=== PATIENT | female | born 1985 | race Caucasian/White ===

== ENCOUNTER 2019-01-23 10:36 | Outpatient (CLI) | payer OTHER ==
[~2019-01-23] VITALS: Ht 157.5 cm; Wt 81.4 kg
[~2019-01-23 10:36] MED LIST: ACET-1600 PO; FLUO20TA25 PO; IBUP-1222 PO; OXYC-302 PO; PREN1TAB98 PO; SUCR1TAB PO; TRAM50TA2 PO
[2019-01-23 10:57] VITALS: BP 129/82
[2019-01-23 11:30] LABS: MICROSCOPIC NOT IND
[2019-01-23 12:01] LABS: BASOPHILS # (AUTO) 0.02 x10^3/uL (0-0.1); BASOPHILS % (AUTO) 0 % (0-1); EOSINOPHILS # (AUTO) 0.07 x10^3/uL (0-0.4); EOSINOPHILS % (AUTO) 1 % (1-7); LYMPHOCYTES # (AUTO) 0.78 x10^3/uL (1-3.4); LYMPHOCYTES % (AUTO) 11 % (22-44); MD NO; MEAN CORPUSCULAR HEMOGLOBIN 29.1 pg (27.0-34.8); MEAN CORPUSCULAR HGB CONC 31.8 g/dL (32.4-35.8); MEAN CORPUSCULAR VOLUME 91.5 fL (80-100); MEAN PLATELET VOLUME 8.7 fL (7.4-10.4); MONOCYTES # (AUTO) 0.43 x10^3/uL (0.2-0.8); MONOCYTES % (AUTO) 6 % (2-9); NEUTROPHILS % (AUTO) 82 % (42-75); PLATELET COUNT 147 x10^3/uL (130-400); RED BLOOD COUNT 3.93 x10^6/uL (3.82-5.3); RED CELL DISTRIBUTION WIDTH 14.5 % (9.6-15.2)
[2019-01-23 12:09] LABS: ALBUMIN 2.7 g/dL (3.4-5.0); CALCIUM 8.8 mg/dL (8.5-10.1); CHLORIDE 107 mmol/L (98-107)
[2019-01-23 12:29] LABS: ALANINE AMINOTRANSFERASE 14 U/L (12-78); ALKALINE PHOSPHATASE 104 U/L (45-117); ANION GAP 8 mmol/L (5-15); BILIRUBIN,TOTAL 0.5 mg/dL (0.2-1.0); CREATININE 0.48 mg/dL (0.55-1.02); TOTAL PROTEIN 6.4 g/dL (6.4-8.2)
[2019-01-23 12:31] LABS: BILIRUBIN, DIRECT < 0.1 mg/dL (0.1-0.2)
[2019-01-23] MEDS ORDERED: ACETAMINOPHEN 325 MG TABLET ONE (13:25)
[2019-01-23] MEDS ORDERED: ACETAMINOPHEN 325 MG TABLET PO PRN (13:30)
[2019-01-23 13:38] LABS: CREATININE,URINE RANDOM 48.3 mg/dL
== END 2019-01-23 13:40 | disposition home or self-care (01) ==
LOC: LDOP 10:36
PROVIDERS: ATTEND Obstetrics & Gynecology
DX: O26.893 Other specified pregnancy related conditions, third trimester (principal); R10.9 Unspecified abdominal pain; Z3A.30 30 weeks gestation of pregnancy
CPT/HCPCS: 36415; 59025; 80053; 81003; 82248; 82570; 84156; 84550; 85025; 87086; 99201; G0463

== ENCOUNTER → 2019-03-03 | Outpatient (CLI) | payer OTHER ==
[~2019-03-03] VITALS: Ht 157.5 cm; Wt 83.6 kg
[~2019-03-03] MED LIST changes: +METH500T11 PO; +MISOPROSTOL 25 MCG TABLET ONE; +PREN1TAB60 PO
[2019-03-03 15:15] VITALS: BP 127/80
[2019-03-03 15:35] LABS: MICROSCOPIC INDICATED
[2019-03-03 15:39] LABS: BASOPHILS # (AUTO) 0.03 x10^3/uL (0-0.1); BASOPHILS % (AUTO) 0 % (0-1); EOSINOPHILS # (AUTO) 0.05 x10^3/uL (0-0.4); EOSINOPHILS % (AUTO) 1 % (1-7); LYMPHOCYTES % (AUTO) 15 % (22-44); MD NO; MEAN CORPUSCULAR HEMOGLOBIN 29.8 pg (27.0-34.8); MEAN CORPUSCULAR HGB CONC 33.5 g/dL (32.4-35.8); MEAN CORPUSCULAR VOLUME 88.9 fL (80-100); MEAN PLATELET VOLUME 8.5 fL (7.4-10.4); MONOCYTES % (AUTO) 5 % (2-9); NEUTROPHILS # (AUTO) 7.68 x10^3/uL (1.8-6.8); NEUTROPHILS % (AUTO) 80 % (42-75); PLATELET COUNT 178 x10^3/uL (130-400); RED BLOOD COUNT 4.19 x10^6/uL (3.82-5.3); RED CELL DISTRIBUTION WIDTH 14.9 % (9.6-15.2)
[2019-03-03 15:41] LABS: CREATININE,URINE RANDOM 38.3 mg/dL
[2019-03-03 15:50] LABS: ANION GAP 10 mmol/L (5-15); CALCIUM 9.2 mg/dL (8.5-10.1); CHLORIDE 107 mmol/L (98-107)
[2019-03-03 15:55] LABS: ALANINE AMINOTRANSFERASE 18 U/L (12-78); ALKALINE PHOSPHATASE 131 U/L (45-117); BILIRUBIN,TOTAL 0.6 mg/dL (0.2-1.0); CREATININE 0.48 mg/dL (0.55-1.02); TOTAL PROTEIN 6.9 g/dL (6.4-8.2)
== END | disposition home or self-care (01) ==
LOC: LDOP 14:48
PROVIDERS: ATTEND Obstetrics & Gynecology
DX: O16.3 Unspecified maternal hypertension, third trimester (principal); Z3A.35 35 weeks gestation of pregnancy
CPT/HCPCS: 36415; 59025; 80053; 81001; 82570; 84156; 84550; 85025; 99211; G0463

== ENCOUNTER 2020-11-12 10:55 | Observation (INO) | payer OTHER ==
[~2020-11-12] VITALS: Ht 157.5 cm; Wt 75.4 kg
[~2020-11-12 10:55] MED LIST changes: +DOCU-131 PO; +FERR325T18 PO; -MISOPROSTOL 25 MCG TABLET ONE; -OXYC-302 PO; +OXYC1TAB14 PO
[2020-11-12] MEDS ORDERED: LACTATED RINGERS 1,000 ML IV SCH ×2 (11:00→12:53)
[2020-11-12] MEDS ORDERED: D5%-LACTATED RINGERS 1,000 ML IV SCH ×2 (11:00→12:52)
[2020-11-12] MEDS ORDERED: ONDANSETRON 2MG/ML, 2ML ONE ×2 (11:15→15:01)
[2020-11-12] MEDS: ONDANSETRON 2MG/ML, 2ML IVPush PRN ×2 (11:21→15:07)
[2020-11-12 11:25] LABS: MICROSCOPIC INDICATED
[2020-11-12] MEDS ORDERED: PLEASE ENTER HEIGHT AND WEIGHT MC SCH (11:30)
[2020-11-12 11:41] LABS: BASOPHILS % (AUTO) 0 % (0-1); EOSINOPHILS % (AUTO) 0 % (1-7); LYMPHOCYTES % (AUTO) 8 % (22-44); MEAN CORPUSCULAR HGB CONC 34.2 g/dL (32.4-35.8); MEAN PLATELET VOLUME 8.3 fL (7.4-10.4); MONOCYTES % (AUTO) 5 % (2-9); NEUTROPHILS % (AUTO) 86 % (42-75); PLATELET COUNT 141 x10^3/uL (130-400); RED BLOOD COUNT 3.95 x10^6/uL (3.82-5.3); RED CELL DISTRIBUTION WIDTH 14.4 % (9.6-15.2)
[2020-11-12 11:43] LABS: MD NO
[2020-11-12 11:58] LABS: ALBUMIN 2.8 g/dL (3.4-5.0); ANION GAP 9 mmol/L (5-15); CALCIUM 8.4 mg/dL (8.5-10.1); CHLORIDE 104 mmol/L (98-107)
[2020-11-12 12:03] LABS: ALANINE AMINOTRANSFERASE 23 U/L (12-78); ALKALINE PHOSPHATASE 46 U/L (45-117); BILIRUBIN,TOTAL 1.1 mg/dL (0.2-1.0); CREATININE 0.47 mg/dL (0.55-1.02); TOTAL PROTEIN 6.2 g/dL (6.4-8.2)
[2020-11-12] MEDS ORDERED: FAMOTIDINE 20 MG/2 ML IVPush ONE (14:30)
[2020-11-12] MEDS ORDERED: BUTALB/APAP/CAFFEINE 50MG/325MG/40MG ONE (15:42)
[2020-11-12] MEDS ORDERED: BUTALB/APAP/CAFFEINE 50MG/325MG/40MG PO ONE (16:00)
== END 2020-11-12 16:30 | disposition home or self-care (01) ==
LOC: LDOP 10:55 → LDIP 12:45
PROVIDERS: ADMIT Obstetrics & Gynecology Maternal & Fetal Medicine; ATTEND Obstetrics & Gynecology Maternal & Fetal Medicine
DX: O21.9 Vomiting of pregnancy, unspecified (principal); O26.892 Other specified pregnancy related conditions, second trimester; R19.7 Diarrhea, unspecified; O13.2 Gestational [pregnancy-induced] hypertension without significant proteinuria, second trimester; Z3A.20 20 weeks gestation of pregnancy; Z79.899 Other long term (current) drug therapy
CPT/HCPCS: 36415; 80053; 81001; 85025; 87086; 96361; 96374; 96375; 96376; 99211; G0378; J2405; J7120; J7121; 96360; G0463

== ENCOUNTER 2021-01-14 14:00 | Outpatient (CLI) | payer OTHER ==
[2021-01-14 14:40] LABS: MICROSCOPIC NOT IND
[2021-01-14 15:06] LABS: BASOPHILS % (AUTO) 0 % (0-1); EOSINOPHILS % (AUTO) 1 % (1-7); LYMPHOCYTES % (AUTO) 16 % (22-44); MEAN CORPUSCULAR HEMOGLOBIN 30.5 pg (27.0-34.8); MEAN CORPUSCULAR HGB CONC 33.8 g/dL (32.4-35.8); MEAN PLATELET VOLUME 9.1 fL (7.4-10.4); MONOCYTES % (AUTO) 6 % (2-9); NEUTROPHILS % (AUTO) 77 % (42-75); PLATELET COUNT 166 x10^3/uL (130-400); RED BLOOD COUNT 3.97 x10^6/uL (3.82-5.3); RED CELL DISTRIBUTION WIDTH 13.7 % (9.6-15.2)
[2021-01-14 15:08] LABS: MD NO
[2021-01-14 15:14] LABS: ALANINE AMINOTRANSFERASE 17 U/L (12-78); ALBUMIN 2.8 g/dL (3.4-5.0); ANION GAP 8 mmol/L (5-15); BILIRUBIN, DIRECT 0.1 mg/dL (0.1-0.2); CALCIUM 8.9 mg/dL (8.5-10.1); CHLORIDE 108 mmol/L (98-107); CREATININE 0.43 mg/dL (0.55-1.02)
[2021-01-14 15:16] LABS: ALKALINE PHOSPHATASE 80 U/L (45-117); BILIRUBIN,TOTAL 0.4 mg/dL (0.2-1.0); TOTAL PROTEIN 6.5 g/dL (6.4-8.2)
[2021-01-14 15:36] LABS: CREATININE,URINE RANDOM 59.2 mg/dL
== END 2021-01-14 16:20 | disposition home or self-care (01) ==
LOC: LDOP 14:00
PROVIDERS: ATTEND Obstetrics & Gynecology Maternal & Fetal Medicine
DX: O16.3 Unspecified maternal hypertension, third trimester (principal); Z3A.29 29 weeks gestation of pregnancy
CPT/HCPCS: 36415; 59025; 80053; 81003; 82248; 82570; 84156; 84550; 85025

== ENCOUNTER 2021-03-10 09:39 | Outpatient (CLI) | payer OTHER ==
[~2021-03-10] VITALS: Ht 157.5 cm; Wt 82.7 kg
[2021-03-10 10:02] VITALS: BP 144/96
== END 2021-03-10 11:10 | disposition home or self-care (01) ==
LOC: LDOP 09:39
PROVIDERS: ATTEND Obstetrics & Gynecology Maternal & Fetal Medicine
DX: Z34.93 Encounter for supervision of normal pregnancy, unspecified, third trimester (principal); Z3A.37 37 weeks gestation of pregnancy
CPT/HCPCS: 59025

== ENCOUNTER 2021-03-13 05:44 | Inpatient (IN) | payer OTHER ==
[~2021-03-13] VITALS: Ht 157.5 cm; Wt 83.2 kg
[~2021-03-13 05:44] MED LIST changes: +CEFAZOLIN PMX 2GM/50ML IVPB ONE; +EPHEDRINE 50 MG/ML, 1ML ONE; +FENTANYL PF 100 MCG/2ML ONE
[2021-03-13] MEDS ORDERED: LACTATED RINGERS 1,000 ML IVBOLUS ONE (06:00)
[2021-03-13] MEDS ORDERED: METOCLOPRAMIDE 5 MG/ML, 2ML IV ONE (06:00)
[2021-03-13] MEDS ORDERED: SODIUM CITRATE/CITRIC ACID 30 ML UDC PO ONE (06:00)
[2021-03-13] MEDS ORDERED: NEWBORN KIT ONE (06:03)
[2021-03-13] MEDS ORDERED: METOCLOPRAMIDE 5 MG/ML, 2ML ONE (06:03)
[2021-03-13] MEDS ORDERED: OXYTOCIN 30U/ 0.9% NaCL 500ML 500 ML ONE (06:03)
[2021-03-13] MEDS ORDERED: SODIUM CITRATE/CITRIC ACID 15 ML UDC ONE (06:04)
[2021-03-13 06:19] LABS: BASOPHILS % (AUTO) 0 % (0-1); EOSINOPHILS % (AUTO) 1 % (1-7); LYMPHOCYTES % (AUTO) 19 % (22-44); MEAN CORPUSCULAR HEMOGLOBIN 28.7 pg (27.0-34.8); MEAN CORPUSCULAR HGB CONC 33.8 g/dL (32.4-35.8); MEAN PLATELET VOLUME 9.5 fL (7.4-10.4); MONOCYTES % (AUTO) 8 % (2-9); NEUTROPHILS % (AUTO) 71 % (42-75); PLATELET COUNT 121 x10^3/uL (130-400); RED BLOOD COUNT 4.05 x10^6/uL (3.82-5.3); RED CELL DISTRIBUTION WIDTH 14.9 % (9.6-15.2)
[2021-03-13 06:26] VITALS: BP 132/78
[2021-03-13] MEDS ORDERED: FENTANYL PF 100 MCG/2ML ONE (07:03)
[2021-03-13] MEDS ORDERED: CEFAZOLIN 1,000 MG ONE ×2 (07:12)
[2021-03-13] MEDS ORDERED: KETOROLAC 30 MG/1 ML ONE (07:33)
[2021-03-13] MEDS ORDERED: OXYTOCIN 10 UNITS/ML, 1ML ONE ×4 (07:33)
[2021-03-13] MEDS ORDERED: EPHEDRINE 50 MG/ML, 1ML ONE (07:59)
[2021-03-13] MEDS ORDERED: ACETAMINOPHEN 325 MG TABLET PO PRN ×3 (08:00→09:00)
[2021-03-13] MEDS ORDERED: morphine SULFATE 10 MG/ML, 1ML IM PRN (08:00)
[2021-03-13] MEDS: OXYTOCIN 30U/ 0.9% NaCL 500ML 500 ML IV SCH ×2 (08:00→18:00)
[2021-03-13] MEDS ORDERED: IBUPROFEN 600 MG TABLET PO PRN (08:00)
[2021-03-13] MEDS ORDERED: MISOPROSTOL 200 MCG TABLET PR PRN (08:00)
[2021-03-13] MEDS ORDERED: CARBOPROST TROMETHAMINE 250 MCG/ML, 1ML IM PRN (08:00)
[2021-03-13] MEDS: LACTATED RINGERS 1,000 ML IV SCH ×4 (08:00→18:00)
[2021-03-13] MEDS ORDERED: DIPH,PERTUSS(ACELL),TET VAC/PF NC IM-VACC PRN (08:00)
[2021-03-13] MEDS ORDERED: MEASLES,MUMPS&RUBELLA VACC/PF 0.5 ML SQ-VACC PRN (08:00)
[2021-03-13] MEDS: KETOROLAC 30 MG/1 ML IV SCH ×3 (08:00→20:06)
[2021-03-13] MEDS ORDERED: OXYcodone 5 MG/5 ML ORAL.SOL UDC PO PRN (09:00)
[2021-03-13] MEDS ORDERED: ONDANSETRON 2MG/ML, 2ML IVPush PRN (09:00)
[2021-03-13] MEDS ORDERED: FENTANYL PF 100 MCG/2ML IV PRN (09:00)
[2021-03-13] MEDS ORDERED: LABETALOL 5MG/ML, 20ML IV PRN (09:00)
[2021-03-13] MEDS ORDERED: EPHEDRINE 50 MG/ML, 1ML IVPush PRN (09:00)
[2021-03-13] MEDS ORDERED: DIPHENHYDRAMINE 50 MG/ML, 1ML IVPush PRN (09:00)
[2021-03-13] MEDS: PRENATAL VIT/IRON/FA 1 EACH TABLET PO SCH (09:00)
[2021-03-13] MEDS ORDERED: hydrALAzine 20 MG/ML, 1ML IV PRN (09:00)
[2021-03-13] MEDS ORDERED: EPHEDRINE 50 MG/ML, 1ML IM PRN (09:00)
[2021-03-13] MEDS ORDERED: morphine SULFATE 10 MG/ML, 1ML IVPush PRN (09:00)
[2021-03-13] MEDS ORDERED: HYDROmorphone 2 MG/ML, 1ML ONE (11:41)
[2021-03-13 11:45] VITALS: BP 130/84
[2021-03-13] MEDS ORDERED: HYDROmorphone 2 MG/ML, 1ML IVPush ONE (12:00)
[2021-03-13] MEDS: ONDANSETRON 2MG/ML, 2ML IV PRN (13:39)
[2021-03-13] MEDS: SIMETHICONE 80 MG CHEW TAB PO PRN ×2 (14:27→22:01)
[2021-03-13] MEDS: OXYcodone/APAP 5/325MG TABLET PO PRN ×2 (16:01→20:05)
[2021-03-13 16:10] VITALS: BP_SYST 107; BP_SYST 138; BP_DIAS 67; BP_DIAS 85
[2021-03-13 17:04] LABS: BASOPHILS % (AUTO) 0 % (0-1); EOSINOPHILS % (AUTO) 0 % (1-7); LYMPHOCYTES % (AUTO) 17 % (22-44); MEAN CORPUSCULAR HEMOGLOBIN 28.9 pg (27.0-34.8); MEAN CORPUSCULAR HGB CONC 33.1 g/dL (32.4-35.8); MEAN PLATELET VOLUME 9.4 fL (7.4-10.4); MONOCYTES % (AUTO) 3 % (2-9); NEUTROPHILS % (AUTO) 79 % (42-75); PLATELET COUNT 104 x10^3/uL (130-400); RED BLOOD COUNT 3.57 x10^6/uL (3.82-5.3); RED CELL DISTRIBUTION WIDTH 14.7 % (9.6-15.2)
[2021-03-13 19:14] VITALS: BP 116/83
[2021-03-13] MEDS: DOCUSATE 100 MG CAPSULE PO PRN (20:05)
[2021-03-14] VITALS: BP 104/72
[2021-03-14] MEDS ORDERED: ONDANSETRON ODT 4 MG ONE (02:06)
[2021-03-14] MEDS: OXYcodone/APAP 5/325MG TABLET PO PRN ×4 (02:15→18:26)
[2021-03-14] MEDS: KETOROLAC 30 MG/1 ML IV SCH ×4 (02:15→20:43)
[2021-03-14 04:00] VITALS: BP 99/65
[2021-03-14] MEDS: LACTATED RINGERS 1,000 ML IV SCH ×5 (04:00→16:00)
[2021-03-14] MEDS: OXYTOCIN 30U/ 0.9% NaCL 500ML 500 ML IV SCH ×2 (04:00→14:00)
[2021-03-14 07:30] VITALS: BP 111/78
[2021-03-14] MEDS: ONDANSETRON 2MG/ML, 2ML IV PRN (07:33)
[2021-03-14] MEDS: SIMETHICONE 80 MG CHEW TAB PO PRN ×2 (08:19→20:50)
[2021-03-14] MEDS: PRENATAL VIT/IRON/FA 1 EACH TABLET PO SCH (08:19)
[2021-03-14] MEDS: DOCUSATE 100 MG CAPSULE PO PRN ×2 (08:19→20:44)
[2021-03-14 20:45] VITALS: BP 120/73
[2021-03-15] MEDS: OXYcodone/APAP 5/325MG TABLET PO PRN ×3 (01:03→13:19)
[2021-03-15] MEDS: KETOROLAC 30 MG/1 ML IV SCH (02:15)
[2021-03-15] MEDS: SIMETHICONE 80 MG CHEW TAB PO PRN ×2 (02:15→08:30)
[2021-03-15 07:00] VITALS: BP 127/89
[2021-03-15] MEDS: LACTATED RINGERS 1,000 ML IV SCH ×4 (08:00→10:00)
[2021-03-15] MEDS: DOCUSATE 100 MG CAPSULE PO PRN (08:30)
[2021-03-15] MEDS: PRENATAL VIT/IRON/FA 1 EACH TABLET PO SCH (08:30)
[2021-03-15 09:37] LABS: BASOPHILS % (AUTO) 0 % (0-1); EOSINOPHILS % (AUTO) 4 % (1-7); LYMPHOCYTES % (AUTO) 15 % (22-44); MEAN CORPUSCULAR HGB CONC 32.7 g/dL (32.4-35.8); MONOCYTES % (AUTO) 4 % (2-9); NEUTROPHILS % (AUTO) 77 % (42-75); PLATELET COUNT 132 x10^3/uL (130-400); RED BLOOD COUNT 3.38 x10^6/uL (3.82-5.3); RED CELL DISTRIBUTION WIDTH 14.8 % (9.6-15.2)
[2021-03-15 09:57] LABS: ALANINE AMINOTRANSFERASE 17 U/L (12-78); ALBUMIN 2.1 g/dL (3.4-5.0); ANION GAP 4 mmol/L (5-15); CALCIUM 8.9 mg/dL (8.5-10.1); CHLORIDE 109 mmol/L (98-107); CREATININE 0.47 mg/dL (0.55-1.02)
[2021-03-15 10:00] LABS: ALKALINE PHOSPHATASE 103 U/L (45-117); BILIRUBIN,TOTAL 0.2 mg/dL (0.2-1.0); TOTAL PROTEIN 5.4 g/dL (6.4-8.2)
[2021-03-15] MEDS: OXYTOCIN 30U/ 0.9% NaCL 500ML 500 ML IV SCH ×2 (10:00)
[2021-03-15] MEDS ORDERED: ONDANSETRON ODT 4 MG PO PRN (15:00)
[2021-03-15] MEDS ORDERED: ONDA4TAB7 PO (16:15)
== END 2021-03-15 17:20 | disposition home or self-care (01) | DRG 784 ==
LOC: LDIP 05:44 → 2NW 11:17
PROVIDERS: ADMIT Obstetrics & Gynecology Maternal & Fetal Medicine; ATTEND Obstetrics & Gynecology Maternal & Fetal Medicine
PROC: 10D00Z1 Extraction of Products of Conception, Low, Open Approach (ICD-10-PCS; principal; 2021-03-13)
PROC: 0UB70ZZ Excision of Bilateral Fallopian Tubes, Open Approach (ICD-10-PCS; 2021-03-13)
DX: O14.04 Mild to moderate pre-eclampsia, complicating childbirth (principal); O99.354 Diseases of the nervous system complicating childbirth; O34.211 Maternal care for low transverse scar from previous cesarean delivery; Z37.0 Single live birth; Z3A.37 37 weeks gestation of pregnancy; O99.344 Other mental disorders complicating childbirth; F32.9 Major depressive disorder, single episode, unspecified; G43.909 Migraine, unspecified, not intractable, without status migrainosus; Z20.822 Contact with and (suspected) exposure to COVID-19; Z23 Encounter for immunization; O99.02 Anemia complicating childbirth; D64.9 Anemia, unspecified
CPT/HCPCS: 36415; 80053; 85025; 86592; 86850; 86900; 87635; 88302; G0378; J0690; J1170; J1885; J2405; J3010; Q0162; J2590; J2765

== ENCOUNTER 2021-03-21 14:16 | Inpatient (IN) | payer OTHER ==
[~2021-03-21] VITALS: Ht 157.5 cm; Wt 76.5 kg
[~2021-03-21 14:16] MED LIST changes: -CEFAZOLIN PMX 2GM/50ML IVPB ONE; -EPHEDRINE 50 MG/ML, 1ML ONE; -FENTANYL PF 100 MCG/2ML ONE; +ONDA4TAB7 PO
[2021-03-21] MEDS ORDERED: ACETAMINOPHEN 500 MG TABLET ONE (14:57)
[2021-03-21] MEDS ORDERED: PLEASE ENTER HEIGHT AND WEIGHT MC SCH (15:00)
[2021-03-21] MEDS ORDERED: ACETAMINOPHEN 500 MG TABLET PO ONE (15:00)
[2021-03-21 15:06] LABS: MICROSCOPIC AUTO
[2021-03-21 15:25] LABS: CREATININE,URINE RANDOM 43.5 mg/dL
[2021-03-21 15:27] LABS: BASOPHILS % (AUTO) 1 % (0-1); EOSINOPHILS % (AUTO) 5 % (1-7); LYMPHOCYTES % (AUTO) 21 % (22-44); MEAN CORPUSCULAR HEMOGLOBIN 28.7 pg (27.0-34.8); MEAN CORPUSCULAR HGB CONC 33.2 g/dL (32.4-35.8); MEAN PLATELET VOLUME 8.3 fL (7.4-10.4); MONOCYTES % (AUTO) 7 % (2-9); NEUTROPHILS % (AUTO) 66 % (42-75); PLATELET COUNT 241 x10^3/uL (130-400); RED BLOOD COUNT 4.01 x10^6/uL (3.82-5.3); RED CELL DISTRIBUTION WIDTH 14.9 % (9.6-15.2)
[2021-03-21 15:34] LABS: ALANINE AMINOTRANSFERASE 33 U/L (12-78); ALBUMIN 2.7 g/dL (3.4-5.0); ANION GAP 3 mmol/L (5-15); BILIRUBIN, DIRECT 0.1 mg/dL (0.1-0.2); CALCIUM 8.3 mg/dL (8.5-10.1); CHLORIDE 109 mmol/L (98-107); CREATININE 0.66 mg/dL (0.55-1.02)
[2021-03-21 15:37] LABS: ALKALINE PHOSPHATASE 99 U/L (45-117); BILIRUBIN,TOTAL 0.5 mg/dL (0.2-1.0)
[2021-03-21] MEDS ORDERED: BUTALB/APAP/CAFFEINE 50MG/325MG/40MG ONE (17:20)
[2021-03-21] MEDS ORDERED: MAGNESIUM SULF. PMX 20GM/500ML 500 ML IV ONE (17:21)
[2021-03-21] MEDS ORDERED: OXYcodone IR 5MG TABLET ONE (17:21)
[2021-03-21] MEDS: BUTALB/APAP/CAFFEINE 50MG/325MG/40MG PO PRN ×2 (17:26→22:24)
[2021-03-21] MEDS ORDERED: LABETALOL 5MG/ML, 20ML IVPush ONE ×3 (17:30)
[2021-03-21] MEDS: LACTATED RINGERS 1,000 ML IV SCH (17:30)
[2021-03-21] MEDS ORDERED: hydrALAzine 20 MG/ML, 1ML IVPush ONE (17:30)
[2021-03-21] MEDS ORDERED: OXYcodone IR 5MG TABLET PO PRN (17:30)
[2021-03-21] MEDS ORDERED: MAGNESIUM SULFATE PMX 4GM/100M 100 ML IVPB ONE (17:30)
[2021-03-21] MEDS: MAGNESIUM SULF. PMX 20GM/500ML 500 ML IV SCH ×2 (17:40→18:00)
[2021-03-21 19:30] VITALS: BP 139/73
[2021-03-21] MEDS ORDERED: IBUPROFEN 600 MG TABLET ONE (20:53)
[2021-03-21] MEDS: DOCUSATE 100 MG CAPSULE PO SCH (21:30)
[2021-03-21] MEDS: IBUPROFEN 600 MG TABLET PO PRN (21:30)
[2021-03-21] MEDS: ONDANSETRON 2MG/ML, 2ML IVPush PRN (21:30)
[2021-03-21] MEDS: OXYcodone IR 5MG TABLET PO PRN (22:24)
[2021-03-22] MEDS: LACTATED RINGERS 1,000 ML IV SCH (01:24)
[2021-03-22] MEDS: MAGNESIUM SULF. PMX 20GM/500ML 500 ML IV SCH (01:27)
[2021-03-22] MEDS: IBUPROFEN 600 MG TABLET PO PRN ×3 (03:31→21:54)
[2021-03-22] MEDS: OXYcodone IR 5MG TABLET PO PRN ×3 (03:33→23:56)
[2021-03-22] MEDS: BUTALB/APAP/CAFFEINE 50MG/325MG/40MG PO PRN ×5 (03:33→21:54)
[2021-03-22] MEDS: PRENATAL VIT/IRON/FA 1 EACH TABLET PO SCH (07:40)
[2021-03-22] MEDS: DOCUSATE 100 MG CAPSULE PO SCH ×2 (07:41→21:00)
[2021-03-22] MEDS: ONDANSETRON 2MG/ML, 2ML IVPush PRN (08:38)
[2021-03-23] MEDS: OXYcodone IR 5MG TABLET PO PRN (04:03)
[2021-03-23] MEDS: BUTALB/APAP/CAFFEINE 50MG/325MG/40MG PO PRN (04:03)
[2021-03-23] MEDS ORDERED: KETOROLAC 30 MG/1 ML IM ONE ×2 (08:25→17:26)
[2021-03-23 08:31] VITALS: BP 162/74
[2021-03-23] MEDS: DOCUSATE 100 MG CAPSULE PO SCH (08:44)
[2021-03-23] MEDS: PRENATAL VIT/IRON/FA 1 EACH TABLET PO SCH (08:44)
[2021-03-23 10:50] VITALS: BP 180/72
[2021-03-23 11:07] VITALS: BP 152/75
[2021-03-23] MEDS ORDERED: PROPRANOLOL 60 MG CAP.SA.24H PO ONE (12:58)
[2021-03-23] MEDS ORDERED: niFEDipine ER 30 MG TABLET.ER PO STA (13:34)
[2021-03-23] MEDS ORDERED: IBUP-1222 PO (17:43)
[2021-03-23] MEDS ORDERED: NIFE30TA2 PO (17:43)
== END 2021-03-23 18:06 | disposition home or self-care (01) | DRG 776 ==
LOC: LDOP 14:16 → LDIP 17:06
PROVIDERS: ADMIT Obstetrics & Gynecology Maternal & Fetal Medicine; ATTEND Obstetrics & Gynecology Maternal & Fetal Medicine
DX: O14.15 Severe pre-eclampsia, complicating the puerperium (principal); O99.355 Diseases of the nervous system complicating the puerperium; G43.909 Migraine, unspecified, not intractable, without status migrainosus
CPT/HCPCS: 36415; 80053; 81001; 82248; 82570; 83735; 84156; 84550; 85025; G0378; J1885; J2405; J3475; J7120